=== PATIENT | male | born 1995 | race Caucasian/White ===

== ENCOUNTER 2017-08-22 18:56 | Emergency (ER) | payer SELFPAY ==
[~2017-08-22] VITALS: Ht 177.8 cm; Wt 80.8 kg
[2017-08-22 18:57] VITALS: Ht 177.8 cm; Wt 80.8 kg
[2017-08-22] MEDS ORDERED: LIDOCAINE/MYLANTA 40 ML BTL PO ONE (20:00)
--- NOTE | 2017-08-22 20:50 | RADRPT ---
PROCEDURE: XR Chest. CLINICAL INDICATION: chest pain x 2 weeks TECHNIQUE: PA and Lateral views of the chest were obtained. COMPARISON: None. FINDINGS: The cardiomediastinal silhouette is within normal limits. The lungs are clear. No signs of pleural f luid or pneumothorax are seen. The osseous structures and soft tissues are unremarkable. IMPRESSION: No evidence for active cardiopulmonary disease. Physician Abdirahman Date Time Electronically viewed and signed by Sami Stafford Physician on 08/22/2017 20:50 ML/
[2017-08-22] MEDS ORDERED: KETOROLAC 60 MG INJ IM STA (22:25)
[2017-08-22] MEDS ORDERED: NAPR-688 PO (23:23)
--- NOTE | 2017-08-22 23:28 | ERD ---
ER Documentation Chief Complaint Chief Complaint intermittent chest pain x 2 weeks HPI 21-year-old male who is active and healthy otherwise states that he has had chest pain scribe is an aching pain is been waxing and waning for the last 2 weeks. It is not related to any particular exercise. Pain is across his entire chest. He has no nausea or vomiting. Denies being short of breath. ROS All systems reviewed and are negative except as per history of present illness. Medications Home Meds Active Scripts Naproxen* (Naproxen*) 500 Mg Tablet, 500 MG PO BID, #20 TAB Prov:ALANNA SOTELO DO 08/22/17 Allergies Allergies: Coded Allergies: No Known Allergy (Unverified , 08/22/17) PMhx/Soc History of Surgery: No Anesthesia Reaction: No Hx Neurological Disorder: No Hx Respiratory Disorders: No Hx Cardiac Disorders: No Hx Psychiatric Problems: No Hx Miscellaneous Medical Probl: No Hx Alcohol Use: No Hx Substance Use: No Hx Tobacco Use: No Smoking Status: Never smoker Physical Exam Vitals Vital Signs Date Time Temp Pulse Resp B/P Pulse Ox O2 Delivery O2 Flow Rate FiO2 08/22/17 18:57 97.8 90 20 155/86 100 Physical Exam Const: [] Head: Atraumatic Eyes: Normal Conjunctiva ENT: Normal External Ears, Nose and Mouth. Neck: Full range of motion..~ No meningismus. Resp: Clear to auscultation bilaterally Cardio: Regular rate and rhythm, no murmurs Abd: Soft, non tender, non distended. Normal bowel sounds Skin: No petechiae or rashes Back: No midline or flank tenderness Ext: No cyanosis, or edema Neur: Awake and alert Psych: Normal Mood and Affect Results 24 hrs Current Medications Medications (Trade) Dose Ordered Sig/Sakina Route PRN Reason Start Time Stop Time Status Last Admin Dose Admin Miscellaneous Medication (Gi Cocktail (2)) 40 ml ONCE ONCE PO 08/22/17 20:00 08/22/17 20:01 DC 08/22/17 20:19 Ketorolac Tromethamine (Toradol) 60 mg ONCE STAT IM 08/22/17 22:25 08/22/17 22:26 DC 08/22/17 22:34 Procedures/MDM Chest pain in a patient with no risk factors. Normal EKG and chest x-ray. I have very low suspicion for acute coronary syndrome due to the patient's age and lack of risk factors as well as normal EKG. patient was given a GI cocktail which did not relieve his pain at all. He was then given 60 mg of IM Toradol which did relieve his pain. Is asymptomatic and we will discharge with primary care follow-up in the next 2 days as well as instructions to obtain an outpatient echocardiogram appointment. Strict return precautions to the ER. EKG interpretation: Normal sinus rhythm, normal axis, normal intervals, no ST or T-wave changes concerning for acute ischemia. Normal EKG Chest x-ray interpretation: I see no acute process. I see no widened mediastinum, no pulmonary edema, no pneumothorax, no infiltrates, no fractures. Departure Diagnosis: Primary Impression: Chest wall pain Additional Impression: Chest pain Condition: Stable Patient Instructions: Chest Pain, Uncertain Cause Additional Instructions: Call your primary care doctor TOMORROW for an appointment during the next 1-2 days. Get an appointment for and ECHOCARDIOGRAM. See the doctor sooner or return here if your condition worsens before your appointment time. ALANNA SOTELO DO Aug 22, 2017 23:28
[2017-08-22 23:35] VITALS: BP 133/89; PULSE 61; RESP 20
== END 2017-08-22 23:35 | disposition home or self-care (01) ==
LOC: FTE 18:56
DX: R07.89 Other chest pain (principal)
CPT/HCPCS: 71010; 93005; 96372; 99284; J1885